=== PATIENT | female | born 1980 | race Caucasian/White ===

== ENCOUNTER → 2022-08-05 14:23 | Outpatient (BNVA) | payer OTHER, SELFPAY | PROVIDERS: Family Provider Family Medicine; Visit Provider Nurse Practitioner Family | DX: N93.9 Abnormal uterine and vaginal bleeding, unspecified (principal); N92.6 Irregular menstruation, unspecified | CPT/HCPCS: 83001; 84146; 84443; 85025; 87624 ==

== ENCOUNTER → 2024-02-27 14:28 | Outpatient (BNVA) | payer OTHER, SELFPAY | PROVIDERS: Family Provider Family Medicine; PCP Clinical Nurse Specialist Adult Health; Visit Provider Clinical Nurse Specialist Adult Health | DX: K58.9 Irritable bowel syndrome, unspecified (principal) | CPT/HCPCS: 80053; 82728; 83550; 85025; 85651; 86140 ==